=== PATIENT | female | born 1965 | race African-American/Black ===

== ENCOUNTER 2019-11-02 16:02 | Inpatient (IN) ==
[2019-11-02] MEDS ORDERED: SODIUM CHLORIDE 0.9% 500 ML IV STA ×2 (16:41→17:03)
[2019-11-02] MEDS ORDERED: ONDANSETRON 4 MG/2 ML VIAL IV STA (16:45)
[2019-11-02 16:46] LABS: Basophils % 0.3 % (0.0-0.8); Hemoglobin 13.9 GM/DL (12.0-16.0); Immature Granulocytes Absolute 0.14 #; Lymphocytes # 1.2 10*3/uL (1.4-4.0); Lymphocytes % 17.2 % (21.3-54.2); Mean Corpuscular HGB Conc 33.9 GM/DL (32-36); Mean Platelet Volume 9.4 FL (9.6-12.0); Monocytes % 9.9 % (1.7-12.7); NRBC # 0.02 10*3/uL; Neutrophils % 70.6 % (38.7-73.9); Platelet Count 344 T/CUMM (130-400); Red Blood Count 4.71 MC/CUMM (3.8-5.5); Red Cell Distribution Width 12.2 % (9.3-17.3); White Blood Count 7.2 T/CUMM (4-12)
[2019-11-02 17:13] LABS: Albumin 3.8 G/DL (3.4-5.0); Bilirubin,Total 0.5 MG/DL (0.2-1.0); Calcium 8.9 MG/DL (8.5-10.1); Osmolality,Calculated 276.7 MOS/KG (273-304); Total Protein 7.7 G/DL (6.4-8.3)
[2019-11-02 17:57] LABS: Sedimentation Rate-Westergren 27 MM/HR (0-30)
[2019-11-02 18:36] LABS: Lymphocytes 24 % (20-55); Platelet Estimate Normal; Segmented Neutrophils 70 % (50-85); Total Cells Counted 100
[2019-11-02] MEDS ORDERED: DEXTROSE 10% 250 ML BAG IV PRN (19:37)
[2019-11-02] MEDS ORDERED: ONDANSETRON 4 MG/2 ML VIAL IV PRN (19:37)
[2019-11-02] MEDS ORDERED: GLUCAGON 1 MG VIAL IM PRN (19:37)
[2019-11-02] MEDS ORDERED: ACETAMINOPHEN 325 MG TABLET PO PRN (19:37)
[2019-11-02] MEDS ORDERED: AZITHROMYCIN INJ 500 MG in SODIUM CHLORIDE 0.9% 250 ML IV SCH (23:00)
[2019-11-03] MEDS ORDERED: SODIUM CHLORIDE 0.9% 0 ML IV ONE (00:34)
[2019-11-03] MEDS: cefTRIAXone 1,000 MG in SYRINGE 1 EACH IV SCH ×2 (01:31→20:59)
[2019-11-03] MEDS: HYDROXYCHLOROQUINE 200 MG TABLET PO SCH ×3 (02:12→21:00)
[2019-11-03] MEDS: ENOXAPARIN 40 MG/0.4 ML SYRINGE SUBCUT SCH ×2 (02:12→21:09)
[2019-11-03 05:22] LABS: Basophils % 0.3 % (0.0-0.8); Eosinophils % 0.3 % (0.00-10.9); Hematocrit 38.4 VOL% (35.7-47.0); Hemoglobin 12.3 GM/DL (12.0-16.0); Immature Granulocytes % 1.9 %; Immature Granulocytes Absolute 0.13 #; Lymphocytes # 1.8 10*3/uL (1.4-4.0); Lymphocytes % 26.4 % (21.3-54.2); Mean Corpuscular Volume 91.9 FL (87-102); Mean Platelet Volume 9.6 FL (9.6-12.0); Neutrophils % 60.1 % (38.7-73.9); Platelet Count 372 T/CUMM (130-400); Red Blood Count 4.18 MC/CUMM (3.8-5.5); Red Cell Distribution Width 12.5 % (9.3-17.3); White Blood Count 6.8 T/CUMM (4-12)
[2019-11-03 05:47] LABS: Hypochromasia 1+
[2019-11-03 05:48] LABS: Microcytosis Slight; Platelet Estimate Normal
[2019-11-03] MEDS: AZITHROMYCIN 250 MG TABLET PO SCH (08:25)
[2019-11-03] MEDS ORDERED: PANTOPRAZOLE 40 MG TABLET PO SCH (09:00)
[2019-11-03] MEDS: ZINC SULFATE 220 MG CAPSULE PO SCH (09:05)
[2019-11-04 07:01] LABS: Basophils % 0.6 % (0.0-0.8); Eosinophils # 0.1 10*3/uL (0.0-0.87); Eosinophils % 1.7 % (0.00-10.9); Hemoglobin 12.8 GM/DL (12.0-16.0); Immature Granulocytes % 1.1 %; Immature Granulocytes Absolute 0.07 #; Lymphocytes # 1.8 10*3/uL (1.4-4.0); Lymphocytes % 26.5 % (21.3-54.2); Mean Corpuscular HGB Conc 32.8 GM/DL (32-36); Mean Corpuscular Volume 89.9 FL (87-102); Mean Platelet Volume 9.4 FL (9.6-12.0); Neutrophils % 60.1 % (38.7-73.9); Platelet Count 423 T/CUMM (130-400); Red Blood Count 4.34 MC/CUMM (3.8-5.5); Red Cell Distribution Width 12.5 % (9.3-17.3); White Blood Count 6.6 T/CUMM (4-12)
[2019-11-04 07:19] LABS: Calcium 9.2 MG/DL (8.5-10.1); Osmolality,Calculated 279.3 MOS/KG (273-304)
[2019-11-04 07:36] LABS: Atypical Lymphocytes Few; Eosinophils 3 % (0-10); Lymphocytes 31 % (20-55); Segmented Neutrophils 57 % (50-85); Total Cells Counted 100
[2019-11-04 07:37] LABS: Hypochromasia 1+; Platelet Estimate Increased
[2019-11-04] MEDS: AZITHROMYCIN 250 MG TABLET PO SCH (08:30)
[2019-11-04] MEDS: HYDROXYCHLOROQUINE 200 MG TABLET PO SCH ×2 (08:30→21:47)
[2019-11-04] MEDS: ENOXAPARIN 40 MG/0.4 ML SYRINGE SUBCUT SCH (21:47)
[2019-11-04] MEDS: CYCLOBENZAPRINE 10 MG TABLET PO PRN (21:47)
[2019-11-05] MEDS: HYDROXYCHLOROQUINE 200 MG TABLET PO SCH ×2 (08:50→20:10)
[2019-11-05] MEDS: ZINC SULFATE 220 MG CAPSULE PO SCH (08:50)
[2019-11-05] MEDS: AZITHROMYCIN 250 MG TABLET PO SCH (08:50)
[2019-11-05] MEDS ORDERED: LACTULOSE 20 GM/30 ML UDCUP PO PRN (10:15)
[2019-11-05] MEDS: POLYETHYLENE GLYCOL POWDER 17 GM PACK PO SCH (14:41)
[2019-11-05] MEDS: DOCUSATE SODIUM 100 MG CAPSULE PO SCH ×3 (14:41→20:10)
[2019-11-05] MEDS: CYCLOBENZAPRINE 10 MG TABLET PO PRN (20:10)
[2019-11-05] MEDS: ENOXAPARIN 40 MG/0.4 ML SYRINGE SUBCUT SCH ×2 (20:10)
[2019-11-06 06:28] LABS: Basophils % 0.3 % (0.0-0.8); Eosinophils # 0.1 10*3/uL (0.0-0.87); Eosinophils % 1.5 % (0.00-10.9); Hematocrit 38.2 VOL% (35.7-47.0); Hemoglobin 12.3 GM/DL (12.0-16.0); Immature Granulocytes % 1.1 %; Immature Granulocytes Absolute 0.07 #; Lymphocytes # 1.6 10*3/uL (1.4-4.0); Lymphocytes % 24.9 % (21.3-54.2); Mean Corpuscular HGB Conc 32.2 GM/DL (32-36); Mean Corpuscular Volume 91.6 FL (87-102); Mean Platelet Volume 8.7 FL (9.6-12.0); Monocytes % 10.8 % (1.7-12.7); Neutrophils % 61.4 % (38.7-73.9); Platelet Count 477 T/CUMM (130-400); Red Blood Count 4.17 MC/CUMM (3.8-5.5); Red Cell Distribution Width 12.4 % (9.3-17.3); White Blood Count 6.6 T/CUMM (4-12)
[2019-11-06 06:46] LABS: Calcium 8.7 MG/DL (8.5-10.1)
[2019-11-06] MEDS: POLYETHYLENE GLYCOL POWDER 17 GM PACK PO SCH (08:40)
[2019-11-06] MEDS: AZITHROMYCIN 250 MG TABLET PO SCH (08:40)
[2019-11-06] MEDS: HYDROXYCHLOROQUINE 200 MG TABLET PO SCH (08:40)
[2019-11-06] MEDS: DOCUSATE SODIUM 100 MG CAPSULE PO SCH (09:28)
[2019-11-06 09:35] VITALS: BP 119/71
== END 2019-11-06 12:47 | disposition home or self-care (01) | DRG 177 ==
LOC: EDUNIT# → EDBD → N.ED 16:02 → SUATTDRO 19:37 → N.EDINP 19:37 → N.2W 11-03 01:12
PROVIDERS: ADMIT Family Medicine; ATTEND Internal Medicine